=== PATIENT | female | born 1965 | race Caucasian/White ===

== ENCOUNTER → 2018-11-16 | Outpatient (CLI) | payer MEDICAID | END | disposition home or self-care (01) | LOC: CFH 13:54 | DX: K76.0 Fatty (change of) liver, not elsewhere classified (principal) | CPT/HCPCS: 76700 ==

== ENCOUNTER 2019-10-13 15:07 | Outpatient (CLI) | payer MEDICAID | END 2019-10-13 23:59 | disposition home or self-care (01) | LOC: RAD 15:07 | PROVIDERS: ATTEND Physician Assistant Medical | DX: Z02.9 Encounter for administrative examinations, unspecified (principal) ==

== ENCOUNTER → 2019-10-14 | Outpatient (CLI) | payer MEDICAID | END | disposition home or self-care (01) | LOC: RAD 11:52 | PROVIDERS: ATTEND Physician Assistant Medical | DX: J01.10 Acute frontal sinusitis, unspecified (principal); R30.0 Dysuria; J06.9 Acute upper respiratory infection, unspecified | CPT/HCPCS: 76770 ==